=== PATIENT | female | born 1975 | race Caucasian/White ===

== ENCOUNTER → 2019-10-23 | Outpatient (CLI) | payer OTHER ==
[~2019-10-23] MED LIST: GASTROGRAFIN SOLUTION 30ML (Q9963) As Ordered ONE; ISOVUE-370 76% 100ML VIAL (Q9967) As Ordered ONE
[2019-10-23 11:27] LABS: BASO % 0.3 % (0.0-1.0); EOS # 0.1 10^3/uL (0.0-0.5); HEMATOCRIT 40.5 % (36.0-47.0); HEMOGLOBIN 13.8 g/dl (12.0-15.5); LYMPH % 19.3 % (24.0-44.0); MEAN CORPUSCULAR HEMOGLOBIN 32.2 pg (27.0-33.0); MEAN CORPUSCULAR HGB CONC 34.1 g/dl (32.0-36.5); MEAN CORPUSCULAR VOLUME 94.6 fl (80.0-96.0); MONO % 9.3 % (0.0-5.0); NEUTROPHILS # 7.1 10^3/uL (1.5-8.5); NEUTROPHILS % 69.7 % (36.0-66.0); PLATELET COUNT, AUTOMATED 199 10^3/uL (150-450); RED BLOOD COUNT 4.28 10^6/uL (4.00-5.40); WHITE BLOOD COUNT 10.2 10^3/uL (4.0-10.0)
[2019-10-23 12:04] LABS: ALBUMIN 4.1 GM/DL (3.2-5.2); ALT/SGPT 67 U/L (12-78); AMYLASE 28 U/L (25-115); BILIRUBIN,TOTAL 0.5 MG/DL (0.2-1.0); BLOOD UREA NITROGEN 9 MG/DL (7-18); CALCIUM LEVEL 9.5 MG/DL (8.5-10.1); CARBON DIOXIDE LEVEL 24 MEQ/L (21-32); CHLORIDE LEVEL 105 MEQ/L (98-107); CREATININE FOR GFR 0.73 MG/DL (0.55-1.30); GLOMERULAR FILTRATION RATE > 60.0 (>58); GLUCOSE, FASTING 110 MG/DL (70-100); LIPASE 148 U/L (73-393); POTASSIUM SERUM 3.9 MEQ/L (3.5-5.1); SODIUM LEVEL 137 MEQ/L (136-145); TOTAL PROTEIN 7.3 GM/DL (6.4-8.2)
--- NOTE | 2019-10-23 14:00 | REP ---
CT of the abdomen and pelvis with IV and oral contrast for generalized abdominal pain: There are no comparisons. The visualized lung cid are unremarkable. The hepatic parenchyma is homogeneous. The gallbladder, pancreas and spleen are normal size, homogeneous and unremarkable. The adrenals are unremarkable. The kidneys are unremarkable. The abdominal aorta is unremarkable. There is no periaortic adenopathy or mass. There is mild wall thickening of the terminal ileum, nonspecific, however, Crohn disease is a primary diagnostic consideration. There is mild dilatation of the small bowel measuring up to 3.2 cm in diameter. There is no colonic distension. There is wall thickening of the descending colon, nonspecific but possibly colitis in the appropriate clinical setting. The mesentery is unremarkable. There is no ascites. Pelvis: The appendix and terminal ileum are unremarkable. The uterus is unremarkable. There is a 1.8 cm left adnexal follicle. The right adnexa is unremarkable. There is no pelvic free fluid or adenopathy. There is a small fat-containing right inguinal hernia. The bladder is unremarkable. There are no lytic, blastic or destructive skeletal changes. Impression: There is a 1.8 cm left adnexal follicle. There is mild wall thickening of the terminal ileum, nonspecific, possibly Crohn disease. There is mild dilatation of the small bowel up to 3.2 the centimeters in diameter. There is mild wall thickening of the descending colon, nonspecific, but possibly colitis in the appropriate clinical setting. No ascites. The right adnexa and uterus are unremarkable. The bladder is unremarkable. There is no ascites, adenopathy or mass. No hydronephrosis. The liver, gallbladder, pancreas, spleen, adrenals and kidneys are unremarkable. Electronically Signed by Rico Rojo MD 10/23/2019 01:52 P
== END ==
LOC: M RAD 10:49
PROVIDERS: ATTEND Physician Assistant
DX: R10.9 Unspecified abdominal pain (principal)

== ENCOUNTER → 2023-04-28 | Outpatient (CLI) | payer OTHER | LOC: M RAD 13:29 | PROVIDERS: ATTEND Internal Medicine | DX: M79.661 Pain in right lower leg (principal) ==